=== PATIENT | female | born 1940 | race Two or more races ===

== ENCOUNTER 2021-04-22 18:27 | Emergency (ER) | payer OTHER ==
[~2021-04-22] VITALS: Ht 172.7 cm; Wt 93.0 kg
[2021-04-22] MEDS ORDERED: DexAMETHasone SOD PHOS 10MG/1ML VIAL INJ IV ONE (19:45)
[2021-04-22 20:52] LABS: Hematocrit 35.1 % (36.0-46.0); Hemoglobin 11.7 g/dL (12.2-16.2); Mean Corpuscular Hemoglobin 29.9 pg (28.0-32.0); Mean Corpuscular Hgb Conc. 33.3 g/dL (32.0-36.0); Mean Corpuscular Volume 89.9 fL (80.0-100.0); White Blood Cell 14.7 10^3/uL (4.4-10.8)
[2021-04-22 20:56] LABS: Band Neutrophils % (manual) 0; Basophils % (manual) 0 (0.0-2.0); Blast Cells 0; Eosinophils % (manual) 0 (0-7); Metamyelocytes % 0; Myelocytes % 0; Promyelocytes % 0
[2021-04-22 21:07] LABS: Potassium 3.6 mmol/L (3.5-5.1)
[2021-04-22 21:16] LABS: Albumin 2.8 g/dL (3.4-5.0); BUN/Creatinine Ratio 26.3; Bilirubin, Total 0.6 mg/dL (0.2-1.0); Calcium 8.4 mg/dL (8.5-10.1); Total Protein 6.7 g/dL (6.4-8.2)
[2021-04-22] MEDS ORDERED: SODIUM CHLORIDE 0.9% 500 ML IV ONE (21:45)
[2021-04-22 21:47] LABS: Lymphocytes % (manual) 63 (10.0-50.0); Monocytes % (manual) 4 (0-12); Reactive Lymphocytes 11
[2021-04-23 01:30] VITALS: BP 119/44
== END 2021-04-23 01:50 | disposition short-term general hospital (02) ==
LOC: ER 18:33
DX: U07.1 COVID-19 (principal); R09.02 Hypoxemia; J18.9 Pneumonia, unspecified organism; Z88.8 Allergy status to other drugs, medicaments and biological substances
CPT/HCPCS: 36415; 71045; 80053; 83880; 84484; 85007; 85027; 87426; 93005; 96361; 96374; 99285; J1100; J7040

== ENCOUNTER → 2021-04-22 | Outpatient (CLI) | payer OTHER ==
[~2021-04-22] VITALS: Ht 149.9 cm; Wt 48.5 kg
[~2021-04-22] MED LIST: ACETAMINOPHEN 500 MG TAB PO ONE; ONDANSETRON HCL 4 MG/2 ML VIAL IV ONE; SODIUM CHLORIDE 0.9% 1,000 ML IV ONE; [UNRECOGNIZED DRUG - OTHER] IV ONE
[2021-04-22 15:15] VITALS: BP 156/67
[2021-04-22 16:45] VITALS: BP 144/65
[2021-04-22 17:00] VITALS: BP 139/54
[2021-04-22 17:30] VITALS: BP 127/50
[2021-04-22 18:00] VITALS: BP 121/51
== END | disposition home or self-care (01) ==
LOC: ER 15:02
PROVIDERS: ATTEND Internal Medicine
DX: U07.1 COVID-19 (principal); J12.82 Pneumonia due to coronavirus disease 2019; R09.02 Hypoxemia; R11.0 Nausea
CPT/HCPCS: 96374; J2405; M0247; Q0247